=== PATIENT | male | born 1990 | race Caucasian/White ===

== ENCOUNTER 2016-11-30 17:51 | Emergency (ER) | payer OTHER ==
[~2016-11-30 17:51] MED LIST: CLIN150 PO; NAPR550 PO; VIBR100C PO
[2016-11-30 17:54] VITALS: BP 135/85; PULSE 80; RESP 20; TEMP 97.8; O2SAT 98
--- NOTE | 2016-11-30 18:23 | PD ---
Physical Exam Date Seen by Provider: Nov 30, 2016 Time Seen by Provider: 18:21 Data Data Last Documented VS Vital Signs Date Time Temp Pulse Resp B/P Pulse Ox O2 Delivery O2 Flow Rate FiO2 11/30/16 17:54 97.8 80 20 135/85 98 Room Air [facility] Supervised Visit with ELADIA: No Narrative Course 26 YO male with complaint of right ankle injury ~230p. Unable to bear weight. Injured at [employer]. Vitals reviewed. Awaiting bed placement. Leni Lagos Nov 30, 2016 18:22
[2016-11-30] MEDS ORDERED: REST0.05 EACH EYE (18:36)
[2016-11-30] MEDS ORDERED: [UNRECOGNIZED DRUG - OTHER] (18:36)
[2016-11-30] MEDS ORDERED: IBUPROFEN 600 MG TAB PO ONE (18:45)
--- NOTE | 2016-11-30 19:00 | RADRPT ---
EXAM DATE/TIME: 11/30/2016 18:57 [facility] COMPARISON: No previous studies available for comparison. INDICATIONS : Pain from fall. MEDICAL HISTORY : None. SURGICAL HISTORY : None. ENCOUNTER: Initial ACUITY: 1 day PAIN SCORE: 8/10 LOCATION: Right lateral foot. FINDINGS: Three view examination of the right foot demonstrates minimally displaced fracture base of the fourth metatarsal. No other fractures. Cortical thickening of 2-5 metatarsals. The calcaneus is intact. B ame mineralization is normal. CONCLUSION: 1. Minimally displaced fracture base of fourth metatarsal. 2. Stress phenomenon of metatarsals. Gelacio Cheng MD November 30, 2016 at 18:56 Board Certified Radiologist. This report was verified electronically.
--- NOTE | 2016-11-30 19:04 | RADRPT ---
EXAM DATE/TIME: 11/30/2016 18:54 [facility] COMPARISON: No previous studies available for comparison. INDICATIONS : Pain from fall. MEDICAL HISTORY : None. SURGICAL HISTORY : None. ENCOUNTER: Initial ACUITY: 1 day PAIN SCORE: 7/10 LOCATION: Right lateral foot. FINDINGS: Three view exam was performed of the right ankle. Soft tissue swelling without fracture. No definite fracture. No radiopaque foreign bodies are seen. Bony mineralization is normal. CONCLUSION: Soft tissue swelling without fracture. Gelacio Cheng MD on November 30, 2016 at 19:00 Board Certified Radiologist. This report was verified electronically.
[2016-11-30] MEDS ORDERED: TRAM50TA PO (19:27)
--- NOTE | 2016-11-30 19:28 | PD ---
HPI Chief Complaint: Injury Time Seen by Provider: 18:31 Travel History International Travel<30 days: No Contact w/Intl Traveler<30days: No Traveled to known affect area: No History of Present Illness HPI Patient is a 26 year old male who comes in complaining of pain to his right foot. He was at [employer] when he hurt his foot. He denies any other injuries. He says he has pain with movement of his foot or when he puts any pressure on it. PFSH Past Medical History Cancer: Yes Past Surgical History Tonsillectomy: Yes Social History Alcohol Use: Yes (occ) Tobacco Use: No Substance Use: No Allergies-Medications (Allergen,Severity, Reaction): Coded Allergies: Amoxicillin (Verified Allergy, Severe, RASH, 11/30/16) Reported Meds & Prescriptions Reported Meds & Active Scripts Active Anaprox Ds (Naproxen Sodium) 550 Mg Tab 550 Mg PO BID Doxy-Caps (Doxycycline Hyclate) 100 Mg Cap 100 Mg PO BID 10 Days Cleocin (Clindamycin HCl) 150 Mg Cap 2 Tab PO QID 10 Days Reported [lutemax] Restasis Opth 0.05% (Cyclosporine Opth 0.05%) 0.05% Emul 1 Drop EACH EYE BID Review of Systems General / Constitutional: No: Fever, Chills HENT: No: Headaches, Lightheadedness Cardiovascular: No: Chest Pain or Discomfort Respiratory: No: Shortness of Breath Gastrointestinal: No: Nausea, Vomiting Musculoskeletal: Positive: Limited ROM, Pain Skin: No Rash, No Change in Pigmentation Neurologic: No: Weakness, Dizziness Physical Exam Narrative GENERAL: Awake and alert, in no acute distress. SKIN: Focused skin assessment warm/dry. HEAD: Atraumatic. Normocephalic. EYES: Pupils equal and round. No scleral icterus. ENT: No nasal bleeding or discharge. Mucous membranes pink and moist. CARDIOVASCULAR: Regular rate and rhythm. No murmur appreciated. RESPIRATORY: No accessory muscle use. Clear to auscultation. Breath sounds equal bilaterally. MUSCULOSKELETAL: No obvious deformities. No clubbing. No cyanosis. No edema. Tender to palpation along the lateral side of the right foot. Pain with inversion and eversion of the right ankle. Pedal pulses intact. NEUROLOGICAL: Awake and alert. No obvious cranial nerve deficits. Motor grossly within normal limits. Normal speech. Data Data Last Documented VS Vital Signs Date Time Temp Pulse Resp B/P Pulse Ox O2 Delivery O2 Flow Rate FiO2 11/30/16 17:54 97.8 80 20 135/85 98 Room Air Orders Foot, Complete ([id number]) (11/30/16 ) Ankle, Complete ([id number]) (11/30/16 ) Ibuprofen (Motrin) (11/30/16 18:45) Splint Or Brace Apply/Monitor (11/30/16 19:12) Crutches (11/30/16 19:12) MDM Medical Decision Making Medical Screen Exam Complete: Yes Emergency Medical Condition: Yes Differential Diagnosis Foot sprain versus foot fracture versus ankle sprain versus ankle fracture Narrative Course Patient is a 26-year-old male who comes in complaining of pain to his right foot after he injured it while at finger 15 today. Exam shows tenderness to the lateral part of the foot. X-ray obtained of the foot shows a fracture of the fourth metatarsal. Patient placed in a posterior splint. Given ibuprofen for pain. Given crutches. Advised to follow-up with podiatry. Advised to return to the ED as needed for any worsening symptoms. Diagnosis Primary Impression: Metatarsal bone fracture Qualified Code: S92.341A - Closed displaced fracture of fourth metatarsal bone of right foot, initial encounter Referrals: Brice Iraheta DPM call for appointment Patient Instructions: Foot Fracture in Adults (ED), General Instructions Additional Instructions: Follow up with podiatry. Take Ibuprofen as needed for pain. You can take Tramadol if pain is severe. Apply ice multiple times per day. Elevated your foot when seated. Keep the splint on until you see podiatry. Do not get the splint wet. Use crutches and avoid putting weight on your foot. Dr. Iraheta: Scripts Tramadol 50 Mg Tab50 Mg PO Q6H PRN (PAIN) #15 TAB Ref 0 Prov:Teresa Gloria MD 11/30/16 Disposition: 01 DISCHARGE HOME Condition: Stable Teresa Gloria MD Nov 30, 2016 19:27
== END 2016-11-30 19:44 | disposition home or self-care (01) ==
LOC: NEPD 17:51
DX: S92.341A Displaced fracture of fourth metatarsal bone, right foot, initial encounter for closed fracture (principal); X58.XXXA Exposure to other specified factors, initial encounter; Y93.9 Activity, unspecified; Y92.89 Other specified places as the place of occurrence of the external cause
CPT/HCPCS: 29515; 73610; 73630; 99283; E0113